=== PATIENT | female | born 1955 | race Hispanic/Latino ===

== ENCOUNTER 2018-09-15 20:37 | Emergency (ER) | payer SELFPAY ==
[2018-09-15 21:03] LABS: #Lymphocytes 1.8 thou/uL (1.20-3.40); #Monocytes 0.4 thou/uL (0.11-0.59); #Neutrophils 9.1 thou/uL (1.40-6.50); %Basophils 0.3 % (0.0-1.0); %Eosinophils 0.2 % (0.0-10.0); %Lymphocytes 15.7 % (21.0-51.0); %Monocytes 3.1 % (0.0-10.0); %Neutrophils 80.7 % (42.0-75.0); Hemoglobin 14.1 g/dL (12.0-16.0); Mean Corpuscular HGB CONC 32.5 g/dL (32.0-36.0); Mean Corpuscular Hemoglobin 28.7 pg (27.0-31.0); Mean Corpuscular Volume 88.5 fL (78.0-98.0); Mean Platelet Volume 7.5 fL (7.4-10.4); Platelet Count 276 thou/uL (130-400); RBC Distribution Width 12.8 % (11.5-14.5); Red Blood Cell (RBC) Count 4.93 mill/uL (4.20-5.40); White Blood Cell (WBC) Count 11.3 thou/uL (4.8-10.8)
[2018-09-15 21:07] LABS: MDiff Complete? YES; Manual Diff?? NO
[2018-09-15] MEDS ORDERED: Mag-Al Plus 1200 MG/1200 MG/120 MG/30 ML UDCUP ONE (21:07)
[2018-09-15] MEDS ORDERED: Lidocaine Viscous Sol 2% 15 ml UD Cup ONE (21:07)
[2018-09-15] MEDS ORDERED: Ondansetron PF 4 MG/2 ML Vial ONE (21:07)
[2018-09-15 21:25] LABS: ALT (SGPT) 42 U/L (8-55); AST (SGOT) 50 U/L (5-34); Albumin 4.4 g/dL (3.5-5.0); Alkaline Phosphatase 117 U/L (40-150); Anion Gap 17 mmol/L (10-20); BUN (Urea Nitrogen) 18 mg/dL (9.8-20.1); Bilirubin, Total 0.6 mg/dL (0.2-1.2); Calc. Creatinine Clearance 0 mL/min (70-130); Calcium 9.6 mg/dL (7.8-10.44); Carbon Dioxide 22 mmol/L (22-29); Chloride 108 mmol/L (98-107); Estimated GFR-MDRD 78; Globulin 3.2 g/dL (2.4-3.5); Glucose 149 mg/dL (70-105); Lipase 8 U/L (8-78); Potassium 4.1 mmol/L (3.5-5.1); Protein, Total 7.6 g/dL (6.0-8.3); Sodium 143 mmol/L (136-145)
== END 2018-09-15 22:20 | disposition home or self-care (01) ==
LOC: NAV ERS 20:37
DX: K29.00 Acute gastritis without bleeding (principal); I95.9 Hypotension, unspecified
CPT/HCPCS: 36415; 80053; 83690; 84484; 85025; 93005; 96374; J2405

== ENCOUNTER 2019-01-09 02:25 | Emergency (ER) | payer SELFPAY ==
[2019-01-09] MEDS ORDERED: Ibuprofen 200 MG TAB ONE (02:36)
[2019-01-09] MEDS ORDERED: Acetaminophen 500 MG TAB ONE (03:06)
== END 2019-01-09 03:14 | disposition home or self-care (01) ==
LOC: NAV ERS 02:25
DX: R50.9 Fever, unspecified (principal); R05 Cough; B34.9 Viral infection, unspecified
CPT/HCPCS: 87804

== ENCOUNTER 2019-10-21 07:35 | Emergency (ER) | payer SELFPAY ==
[2019-10-21] MEDS ORDERED: Ondansetron ODT 4 MG TAB ONE (08:03)
[2019-10-21] MEDS ORDERED: Lidocaine Viscous Sol 2% 15 ml UD Cup ONE (08:04)
[2019-10-21] MEDS ORDERED: Mag-Al Plus 1200 MG/1200 MG/120 MG/30 ML UDCUP ONE (08:04)
== END 2019-10-21 08:51 | disposition home or self-care (01) ==
LOC: NAV ERS 07:35
DX: K29.00 Acute gastritis without bleeding (principal); E78.5 Hyperlipidemia, unspecified; I10 Essential (primary) hypertension; Z79.899 Other long term (current) drug therapy
CPT/HCPCS: 99283; Q0162